=== PATIENT | female | born 1940 | race Caucasian/White ===

== ENCOUNTER → 2018-04-01 | Outpatient (CLI) | payer MEDICARE, OTHER ==
[2018-04-01 12:16] LABS: Source, Urine Clean Catch
[2018-04-01 16:15] LABS: Appearance, Urine Cloudy (Clear); Bilirubin, Urine Neg (Neg); Blood, Urine 2+ (Neg); Color, Urine Yellow (P-Yellow); Glucose Qualitative, Urine Neg (Neg); Ketones, Urine Neg (Neg); Leukocyte Esterase, Urine 3+ (Neg); Nitrite, Urine Neg (Neg); Protein, Urine 2+ (Neg); Urobilinogen, Urine NORM (Normal)
[2018-04-01 16:27] LABS: White Blood Cells, Urine TNTC /hpf (0-5)
[2018-04-01 16:28] LABS: Bacteria Many /hpf; Renal Epithelial Few /hpf (0-Rare); Squamous Epithelial Cells Few /hpf (Few)
== END | disposition home or self-care (01) ==
LOC: LAB 12:15 → LAB SHORT 12:15
PROVIDERS: Internal Medicine
DX: N18.9 Chronic kidney disease, unspecified (principal)
CPT/HCPCS: 81001; 87077; 87086; 87186

== ENCOUNTER → 2018-09-12 | Outpatient (CLI) | payer MEDICARE, OTHER | END | disposition home or self-care (01) | LOC: PLD 11:14 → LAB SHORT 11:14 | DX: D48.5 Neoplasm of uncertain behavior of skin (principal) | CPT/HCPCS: 88305 ==

== ENCOUNTER 2019-07-24 16:35 | Emergency (ER) | payer MEDICARE, OTHER ==
[~2019-07-24] VITALS: Ht 154.9 cm; Wt 63.5 kg
[2019-07-24 17:15] LABS: BASOPHILS ABSOLUTE AUTO 0.06 K/mm3 (0.00-0.23); BASOPHILS PERCENT AUTO 1 % (0-2); EOSINOPHILS ABSOLUTE AUTO 0.15 K/mm3 (0.00-0.68); EOSINOPHILS PERCENT AUTO 2 % (0-6); Hematocrit 36.8 % (33.0-51.0); Hemoglobin 11.8 g/dL (11.5-16.0); IMMATURE GRAN ABSOLUTE AUTO 0.01 K/mm3 (0.00-0.10); IMMATURE GRAN PERCENT AUTO 0 % (0-1); LYMPHOCYTES ABSOLUTE AUTO 1.55 K/mm3 (0.84-5.20); LYMPHOCYTES PERCENT AUTO 23 % (21-46); MONOCYTES ABSOLUTE AUTO 0.53 K/mm3 (0.16-1.47); MONOCYTES PERCENT AUTO 8 % (4-13); Mean Corpuscular HGB 30.3 pg (26.0-34.0); Mean Corpuscular HGB Conc 32.1 g/dL (31.5-36.5); Mean Corpuscular Volume 94 fL (80-100); NEUTROPHILS PERCENT AUTO 66 % (41-73); Platelet Count 277 K/mm3 (150-400); RDW Coefficient Variation 19.9 % (11.7-14.2); RDW Standard Deviation 67.9 fL (35.1-46.3)
[2019-07-24 17:38] LABS: Albumin, Blood 3.7 g/dL (3.4-5.0); Bilirubin, Total 0.2 mg/dL (0.1-1.0); Bun/Creatinine Ratio 27.4 (12.0-20.0); Calcium, Blood 9.5 mg/dL (8.5-10.1); Creatinine, Blood 1.17 mg/dL (0.40-1.00); Globulin, Blood 3.7 g/dL (2.2-4.0); Potassium, Blood 3.9 mmol/L (3.5-5.5); Total Protein, Blood 7.4 g/dL (6.4-8.2)
[2019-07-24 18:27] LABS: Source, Urine Clean Catch
[2019-07-24 18:33] LABS: Bilirubin, Urine Neg (Neg); Blood, Urine 2+ (Neg); Glucose Qualitative, Urine Neg (Neg); Ketones, Urine 1+ (Neg); Leukocyte Esterase, Urine 3+ (Neg); Nitrite, Urine Neg (Neg); Protein, Urine 2+ (Neg); Specific Gravity, Urine 1.025 (1.003-1.022); Urobilinogen, Urine NORM (Normal)
[2019-07-24 18:43] LABS: Appearance, Urine Cloudy (Clear); Color, Urine Yellow (P-Yellow)
[2019-07-24 18:44] LABS: Bacteria Many /hpf; Squamous Epithelial Cells Few /hpf (Few); Transitional Epithelial Cells Few /hpf (0-Rare); White Blood Cells, Urine TNTC /hpf (0-5)
[2019-07-24 18:54] LABS: U Amphetamine Screen Not Detected; U Barbituate Screen Not Detected; U Benzodiazapine Screen Not Detected; U Buprenorphine Screen Not Detected; U Cannabinoids Screen Not Detected; U Cocaine Screen Not Detected; U Methadone Screen Not Detected; U Methamphetamine Screen Not Detected; U Opiates Screen Not Detected; U Oxycodone Screen Not Detected; U Phencyclidine Screen Not Detected; U Propoxyphene Screen Not Detected
[2019-07-24] MEDS ORDERED: LEVSOD25 PO (19:22)
[2019-07-24] MEDS ORDERED: METO25ER PO (19:22)
[2019-07-24] MEDS ORDERED: MELO7.5 PO (19:22)
[2019-07-24] MEDS ORDERED: BACL10 PO (19:23)
[2019-07-24] MEDS ORDERED: GABA100 PO (19:23)
[2019-07-24] MEDS ORDERED: OMEPRAZOLE20 MG PO (19:23)
[2019-07-24] MEDS ORDERED: CEPH500 PO (19:38)
== END 2019-07-24 20:00 | disposition home or self-care (01) ==
LOC: ER 16:35
PROVIDERS: Emergency Medicine
DX: N39.0 Urinary tract infection, site not specified (principal)
CPT/HCPCS: 36415; 71046; 80053; 81001; 85025; 87077; 87086; 87186; 99284-25; A9270-GY

== ENCOUNTER → 2020-09-25 | Outpatient (CLI) | payer MEDICARE, OTHER ==
[~2020-09-25] MED LIST: BACL10 PO; CEPH500 PO; GABA100 PO; LEVSOD25 PO; MELO7.5 PO; METO25ER PO; OMEPRAZOLE20 MG PO
[2020-09-25 15:33] LABS: Source, Urine Clean Catch
[2020-09-25 18:02] LABS: Appearance, Urine Clear (Clear); Bilirubin, Urine Neg (Neg); Blood, Urine Neg (Neg); Color, Urine Yellow (P-Yellow); Glucose Qualitative, Urine Neg (Neg); Ketones, Urine Neg (Neg); Leukocyte Esterase, Urine 3+ (Neg); Nitrite, Urine Neg (Neg); Protein, Urine Neg (Neg); Specific Gravity, Urine 1.015 (1.003-1.022); Urobilinogen, Urine NORM (Normal)
[2020-09-25 18:19] LABS: Hyaline Casts Rare /lpf (0-2); Red Blood Cells, Urine 0-2 /hpf (0-2); Squamous Epithelial Cells Rare /hpf (Few)
[2020-09-25 18:20] LABS: Bacteria Rare /hpf; Transitional Epithelial Cells Few /hpf (0-Rare)
== END ==
LOC: PLD 15:32 → LAB SHORT 15:32 → LAB 15:32
PROVIDERS: Internal Medicine
DX: R10.9 Unspecified abdominal pain (principal)
CPT/HCPCS: 81001; 87086

== ENCOUNTER → 2020-10-02 | Outpatient (CLI) | payer MEDICARE, OTHER ==
[2020-10-02 14:53] LABS: Source, Urine Clean Catch
[2020-10-02 17:44] LABS: Appearance, Urine Clear (Clear); Bilirubin, Urine Neg (Neg); Blood, Urine 1+ (Neg); Color, Urine Yellow (P-Yellow); Glucose Qualitative, Urine Neg (Neg); Ketones, Urine Neg (Neg); Leukocyte Esterase, Urine 1+ (Neg); Nitrite, Urine Neg (Neg); Protein, Urine Neg (Neg); Specific Gravity, Urine 1.025 (1.003-1.022); Urobilinogen, Urine NORM (Normal)
[2020-10-02 18:02] LABS: Bacteria Few /hpf; Calcium Oxalate Crystals Few /hpf; Red Blood Cells, Urine 0-2 /hpf (0-2); Squamous Epithelial Cells Few /hpf (Few)
== END | disposition home or self-care (01) ==
LOC: LAB 11:43
PROVIDERS: Internal Medicine
DX: R10.9 Unspecified abdominal pain (principal)
CPT/HCPCS: 81001; 87086

== ENCOUNTER 2021-08-06 05:57 | Emergency (ER) | payer MEDICARE, OTHER ==
[~2021-08-06] VITALS: Ht 154.9 cm; Wt 49.9 kg
[2021-08-06] MEDS ORDERED: HYDROCODONE-AC1 EAC7 PO (06:25)
[2021-08-06 06:29] LABS: BASOPHILS ABSOLUTE AUTO 0.02 K/mm3 (0.00-0.23); BASOPHILS PERCENT AUTO 0 % (0-2); EOSINOPHILS PERCENT AUTO 0 % (0-6); Hematocrit 30.7 % (33.0-51.0); Hemoglobin 10.3 g/dL (11.5-16.0); IMMATURE GRAN ABSOLUTE AUTO 0.04 K/mm3 (0.00-0.10); IMMATURE GRAN PERCENT AUTO 0 % (0-1); LYMPHOCYTES ABSOLUTE AUTO 0.45 K/mm3 (0.84-5.20); LYMPHOCYTES PERCENT AUTO 4 % (21-46); MONOCYTES ABSOLUTE AUTO 0.62 K/mm3 (0.16-1.47); MONOCYTES PERCENT AUTO 5 % (4-13); Mean Corpuscular HGB 30.6 pg (26.0-34.0); Mean Corpuscular HGB Conc 33.6 g/dL (31.5-36.5); Mean Corpuscular Volume 91 fL (80-100); Mean Platelet Volume 10.1 fL (9.1-12.4); NEUTROPHILS ABSOLUTE AUTO 10.77 K/mm3 (1.96-9.15); NEUTROPHILS PERCENT AUTO 91 % (41-73); Platelet Count 284 K/mm3 (150-400); RDW Coefficient Variation 21.2 % (11.7-14.2); RDW Standard Deviation 67.9 fL (35.1-46.3); Red Blood Cell Count 3.37 M/mm3 (3.80-5.20)
[2021-08-06 06:54] LABS: Alanine Aminotransfer (ALT/SGP 19 U/L (12-78); Albumin, Blood 3.3 g/dL (3.4-5.0); Alk Phos 68 U/L (50-136); Anion Gap 9 mmol/L (6-16); Aspartate Aminotrans (AST/SGOT 19 U/L (12-37); Bilirubin, Total 0.5 mg/dL (0.1-1.0); Blood Urea Nitrogen 28 mg/dL (8-24); Bun/Creatinine Ratio 28.7 (12.0-20.0); CO2, Blood 25 mmol/L (21-32); Calcium, Blood 9.3 mg/dL (8.5-10.1); Chloride, Blood 104 mmol/L (98-108); Creatinine, Blood 0.98 mg/dL (0.40-1.00); Globulin, Blood 3.3 g/dL (2.2-4.0); Glomerular Filtration Rate 55 (60-); Glucose, Blood 128 mg/dL (70-99); Sodium, Blood 138 mmol/L (136-145); Total Protein, Blood 6.6 g/dL (6.4-8.2); Troponin I <0.015 ng/mL (0.000-0.040)
[2021-08-06] MEDS ORDERED: ONDA4ODT MM (09:08)
[2021-08-06] MEDS ORDERED: AMOCLA875 PO (09:08)
== END 2021-08-06 10:05 | disposition home or self-care (01) ==
LOC: ER 05:57
PROVIDERS: Emergency Medicine
DX: K57.32 Diverticulitis of large intestine without perforation or abscess without bleeding (principal)
CPT/HCPCS: 74177; 80053; 83690; 84484; 85025; 93005; 93010; A9270; J3010; Q9967

== ENCOUNTER 2021-09-12 16:55 | Emergency (ER) | payer MEDICARE, OTHER ==
[~2021-09-12] VITALS: Ht 154.9 cm; Wt 47.6 kg
[~2021-09-12 16:55] MED LIST changes: +AMOCLA875 PO; +HYDROCODONE-AC1 EAC7 PO; +ONDA4ODT MM
[2021-09-12 17:48] LABS: BASOPHILS ABSOLUTE AUTO 0.04 K/mm3 (0.00-0.23); BASOPHILS PERCENT AUTO 1 % (0-2); EOSINOPHILS ABSOLUTE AUTO 0.07 K/mm3 (0.00-0.68); EOSINOPHILS PERCENT AUTO 1 % (0-6); Hemoglobin 10.7 g/dL (11.5-16.0); IMMATURE GRAN ABSOLUTE AUTO 0.03 K/mm3 (0.00-0.10); IMMATURE GRAN PERCENT AUTO 0 % (0-1); LYMPHOCYTES ABSOLUTE AUTO 1.06 K/mm3 (0.84-5.20); LYMPHOCYTES PERCENT AUTO 13 % (21-46); MONOCYTES PERCENT AUTO 8 % (4-13); Mean Corpuscular HGB 30.6 pg (26.0-34.0); Mean Corpuscular HGB Conc 33.4 g/dL (31.5-36.5); Mean Corpuscular Volume 91 fL (80-100); Mean Platelet Volume 10.2 fL (9.1-12.4); NEUTROPHILS ABSOLUTE AUTO 6.17 K/mm3 (1.96-9.15); NEUTROPHILS PERCENT AUTO 77 % (41-73); Platelet Count 514 K/mm3 (150-400); RDW Coefficient Variation 19.6 % (11.7-14.2); RDW Standard Deviation 62.9 fL (35.1-46.3); White Blood Cell Count 7.97 K/mm3 (4.00-11.30)
[2021-09-12 18:27] LABS: Alanine Aminotransfer (ALT/SGP 26 U/L (12-78); Albumin, Blood 3.4 g/dL (3.4-5.0); Albumin/Globulin Ratio 0.8 (0.8-1.8); Alk Phos 154 U/L (50-136); Anion Gap 10 mmol/L (6-16); Aspartate Aminotrans (AST/SGOT 19 U/L (12-37); Bilirubin, Total 0.4 mg/dL (0.1-1.0); Blood Urea Nitrogen 22 mg/dL (8-24); Bun/Creatinine Ratio 27.7 (12.0-20.0); CO2, Blood 24 mmol/L (21-32); Calcium, Blood 9.6 mg/dL (8.5-10.1); Chloride, Blood 101 mmol/L (98-108); Creatinine, Blood 0.79 mg/dL (0.40-1.00); Glomerular Filtration Rate >60 (60-); Glucose, Blood 128 mg/dL (70-99); Potassium, Blood 3.7 mmol/L (3.5-5.5); Sodium, Blood 135 mmol/L (136-145); Total Protein, Blood 7.4 g/dL (6.4-8.2)
[2021-09-12] MEDS ORDERED: DOCU100 PO (22:14)
== END 2021-09-12 23:15 | disposition home or self-care (01) ==
LOC: ER 16:55
PROVIDERS: Physician Assistant
DX: K59.00 Constipation, unspecified (principal); Z79.899 Other long term (current) drug therapy; Z88.8 Allergy status to other drugs, medicaments and biological substances
CPT/HCPCS: 36415; 74176; 80053; 83690; 85025; 96374; 99284-25; A9270; J2405

== ENCOUNTER → 2021-10-31 | Outpatient (CLI) | payer MEDICARE, OTHER ==
[~2021-10-31] MED LIST changes: +DOCU100 PO
[2021-10-31 13:07] LABS: BASOPHILS ABSOLUTE AUTO 0.04 K/mm3 (0.00-0.23); BASOPHILS PERCENT AUTO 1 % (0-2); EOSINOPHILS ABSOLUTE AUTO 0.09 K/mm3 (0.00-0.68); EOSINOPHILS PERCENT AUTO 1 % (0-6); Hematocrit 35.8 % (33.0-51.0); Hemoglobin 11.8 g/dL (11.5-16.0); IMMATURE GRAN ABSOLUTE AUTO 0.02 K/mm3 (0.00-0.10); IMMATURE GRAN PERCENT AUTO 0 % (0-1); LYMPHOCYTES ABSOLUTE AUTO 0.79 K/mm3 (0.84-5.20); LYMPHOCYTES PERCENT AUTO 11 % (21-46); MONOCYTES ABSOLUTE AUTO 0.63 K/mm3 (0.16-1.47); MONOCYTES PERCENT AUTO 9 % (4-13); Mean Corpuscular HGB 31.1 pg (26.0-34.0); Mean Corpuscular Volume 94 fL (80-100); Mean Platelet Volume 10.5 fL (9.1-12.4); NEUTROPHILS ABSOLUTE AUTO 5.33 K/mm3 (1.96-9.15); NEUTROPHILS PERCENT AUTO 77 % (41-73); Platelet Count 291 K/mm3 (150-400); RDW Coefficient Variation 18.5 % (11.7-14.2); RDW Standard Deviation 62.5 fL (35.1-46.3)
[2021-10-31 13:20] LABS: Alanine Aminotransfer (ALT/SGP 20 U/L (12-78); Albumin, Blood 3.5 g/dL (3.4-5.0); Alk Phos 72 U/L (50-136); Anion Gap 5 mmol/L (6-16); Aspartate Aminotrans (AST/SGOT 14 U/L (12-37); Bilirubin, Total 0.4 mg/dL (0.1-1.0); Blood Urea Nitrogen 19 mg/dL (8-24); Bun/Creatinine Ratio 21.4 (12.0-20.0); CO2, Blood 30 mmol/L (21-32); Calcium, Blood 9.5 mg/dL (8.5-10.1); Chloride, Blood 101 mmol/L (98-108); Creatinine, Blood 0.89 mg/dL (0.40-1.00); Globulin, Blood 3.5 g/dL (2.2-4.0); Glomerular Filtration Rate >60 (60-); Glucose, Blood 115 mg/dL (70-99); Sodium, Blood 136 mmol/L (136-145)
== END ==
LOC: LAB SHORT 11:44
PROVIDERS: Internal Medicine
DX: R63.4 Abnormal weight loss (principal); N18.1 Chronic kidney disease, stage 1; F32.1 Major depressive disorder, single episode, moderate; E03.9 Hypothyroidism, unspecified; R73.09 Other abnormal glucose
CPT/HCPCS: 80053; 83036; 84443; 85025

== ENCOUNTER 2023-01-13 20:52 | Observation (INO) | payer MEDICARE, OTHER ==
[~2023-01-13] VITALS: Ht 157.5 cm; Wt 54.4 kg
[2023-01-13 21:21] LABS: BASOPHILS ABSOLUTE AUTO 0.05 K/mm3 (0.00-0.23); BASOPHILS PERCENT AUTO 1 % (0-2); EOSINOPHILS PERCENT AUTO 1 % (0-6); Hematocrit 37.2 % (33.0-51.0); Hemoglobin 12.2 g/dL (11.5-16.0); IMMATURE GRAN ABSOLUTE AUTO 0.02 K/mm3 (0.00-0.10); IMMATURE GRAN PERCENT AUTO 0 % (0-1); LYMPHOCYTES ABSOLUTE AUTO 1.59 K/mm3 (0.84-5.20); LYMPHOCYTES PERCENT AUTO 20 % (21-46); MONOCYTES ABSOLUTE AUTO 0.73 K/mm3 (0.16-1.47); MONOCYTES PERCENT AUTO 9 % (4-13); Mean Corpuscular HGB 28.8 pg (26.0-34.0); Mean Corpuscular HGB Conc 32.8 g/dL (31.5-36.5); Mean Corpuscular Volume 88 fL (80-100); NEUTROPHILS ABSOLUTE AUTO 5.47 K/mm3 (1.96-9.15); NEUTROPHILS PERCENT AUTO 69 % (41-73); Platelet Count 304 K/mm3 (150-400); RDW Coefficient Variation 22.5 % (11.7-14.2); RDW Standard Deviation 68.5 fL (35.1-46.3); Red Blood Cell Count 4.23 M/mm3 (3.80-5.20); White Blood Cell Count 7.96 K/mm3 (4.00-11.30)
[2023-01-13 21:23] LABS: Mean Platelet Volume 10.2 fL (9.1-12.4)
[2023-01-13 21:36] LABS: Albumin, Blood 3.3 g/dL (3.4-5.0); Albumin/Globulin Ratio 0.9 (0.8-1.8); Bilirubin, Total 0.2 mg/dL (0.1-1.0); Bun/Creatinine Ratio 30.7 (12.0-20.0); Calcium, Blood 9.4 mg/dL (8.5-10.1); Creatinine, Blood 1.01 mg/dL (0.40-1.00); Globulin, Blood 3.5 g/dL (2.2-4.0); Potassium, Blood 3.4 mmol/L (3.5-5.5); Total Protein, Blood 6.8 g/dL (6.4-8.2)
[2023-01-13 21:55] LABS: Calcium, Ionized (POC) 1.23 mmol/L (1.10-1.46); Chloride (POC) 105 mmol/L (98-108); Glucose (ISTAT POC) 102 mg/dL (70-99); Hemoglobin (POC) 12.6 g/dL (12.0-16.0); Potassium (POC) 3.3 mmol/L (3.5-5.5); Sodium (POC) 140 mmol/L (135-148); Total CO2 (POC) 24 mmol/L (21-32)
[2023-01-13] MEDS ORDERED: ASPIR 8181 M1 PO (22:01)
[2023-01-13 23:32] LABS: Magnesium, Blood 1.9 mg/dL (1.6-2.4); Thyroid Stimulating Hormone 4.21 uIU/mL (0.360-4.800)
[2023-01-14 02:25] VITALS: BP 189/76
[2023-01-14 02:27] VITALS: BP 162/81
--- NOTE | 2023-01-14 03:59 | NUR ---
ADMIT NOTE HANDOFF RECEIVED FROM ANABELLA RAMIREZ RN. PT ARRIVED TO FLOOR VIA GURNEY. PT ORIENTED TO UNIT. TELEMETRY: NSR @ 68 bpm. PERSONAL POSSESSIONS WITH PT. IV MG++ INFUSING ORDERED
--- NOTE | 2023-01-14 04:27 | NUR ---
SHIFT SUMMARY ADMITTED THIS SHIFT FROM ER FOR PAROXYSMAL SVT. DNI CODE. THE PLAN IS K+ AND MG++ SUPPLEMENTATION AND MX HEART RHYTHM. TELEMETRY: NSR @ 68 BPM. SHE HAS NO S/SX OR CP. 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 SHE IS ON RA, CARDIAC DIET, 1 ASSIST W/FWW. SHE IS WEAK AND SLOW MOVING. SHE IS A&O X4. SHE IS INCONTINENT, PUREWICK IN PLACE
[2023-01-14 05:21] LABS: BASOPHILS ABSOLUTE AUTO 0.05 K/mm3 (0.00-0.23); BASOPHILS PERCENT AUTO 1 % (0-2); EOSINOPHILS ABSOLUTE AUTO 0.09 K/mm3 (0.00-0.68); EOSINOPHILS PERCENT AUTO 2 % (0-6); Hemoglobin 11.2 g/dL (11.5-16.0); IMMATURE GRAN ABSOLUTE AUTO 0.02 K/mm3 (0.00-0.10); IMMATURE GRAN PERCENT AUTO 0 % (0-1); LYMPHOCYTES PERCENT AUTO 27 % (21-46); MONOCYTES PERCENT AUTO 8 % (4-13); Mean Corpuscular HGB 29.1 pg (26.0-34.0); Mean Corpuscular HGB Conc 32.9 g/dL (31.5-36.5); Mean Corpuscular Volume 88 fL (80-100); Mean Platelet Volume 10.4 fL (9.1-12.4); NEUTROPHILS PERCENT AUTO 62 % (41-73); Platelet Count 263 K/mm3 (150-400); RDW Coefficient Variation 22.3 % (11.7-14.2); RDW Standard Deviation 69.1 fL (35.1-46.3); Red Blood Cell Count 3.85 M/mm3 (3.80-5.20); White Blood Cell Count 5.96 K/mm3 (4.00-11.30)
[2023-01-14 05:56] LABS: Albumin, Blood 2.9 g/dL (3.4-5.0); Bilirubin, Total 0.3 mg/dL (0.1-1.0); Bun/Creatinine Ratio 28.5 (12.0-20.0); Calcium, Blood 8.6 mg/dL (8.5-10.1); Creatinine, Blood 0.88 mg/dL (0.40-1.00); Globulin, Blood 2.9 g/dL (2.2-4.0); Potassium, Blood 3.9 mmol/L (3.5-5.5); Total Protein, Blood 5.8 g/dL (6.4-8.2)
[2023-01-14 07:47] VITALS: BP 152/65
--- NOTE | 2023-01-14 14:59 | NUR ---
PT DISCHARGED 1345 WITH DC INSTRUCTIONS, WHEELCHAIR ESCORT OUT TO PRIVATE CAR FOR DRIVE HOME. HOME HEALTH PT SET UP WITH AND JOB PLACEMENT COUNSELOR BEFORE PT LEFT.
== END 2023-01-14 13:35 | disposition home health service (06) ==
LOC: ER 20:52 → MEDS 20:53
PROVIDERS: Family Medicine; Student in an Organized Health Care Education/Training Program; ADMIT Internal Medicine
DX: I47.1 Supraventricular tachycardia (principal); E87.6 Hypokalemia; E03.9 Hypothyroidism, unspecified; I10 Essential (primary) hypertension; K21.9 Gastro-esophageal reflux disease without esophagitis; Z66 Do not resuscitate; Z88.5 Allergy status to narcotic agent; Z79.890 Hormone replacement therapy; Z79.899 Other long term (current) drug therapy
CPT/HCPCS: 36415; 71045; 80047; 80053; 83735; 83880; 84443; 84484; 85014; 85025; 93005; 93010; 96360; 96361; 96365; 96372; 97110; 97116; 97162; 99285-25; A9270; G0378; J1650; J3475; J7030; J7050

== ENCOUNTER 2023-01-15 22:28 | Emergency (ER) | payer MEDICARE, OTHER ==
[~2023-01-15] VITALS: Ht 157.5 cm; Wt 59.0 kg
[~2023-01-15 22:28] MED LIST changes: +ASPIR 8181 M1 PO
[2023-01-15 23:15] VITALS: BP 131/97
== END 2023-01-15 23:45 | disposition home or self-care (01) ==
LOC: ER 22:28
DX: I47.1 Supraventricular tachycardia (principal); Z88.5 Allergy status to narcotic agent; Z79.899 Other long term (current) drug therapy; Z79.82 Long term (current) use of aspirin
CPT/HCPCS: 93005; 93010; 99285-25

== ENCOUNTER 2023-01-22 16:46 | Observation (INO) | payer MEDICARE, OTHER | END 2023-01-25 16:42 | disposition home or self-care (01) | LOC: ER 16:46 → MEDS 16:48 | PROVIDERS: ADMIT Hospitalist | DX: R53.1 Weakness (principal); I47.1 Supraventricular tachycardia; I48.0 Paroxysmal atrial fibrillation; E03.9 Hypothyroidism, unspecified; N17.9 Acute kidney failure, unspecified; Z20.822 Contact with and (suspected) exposure to COVID-19; Z88.5 Allergy status to narcotic agent ==

== ENCOUNTER → 2024-02-11 | Outpatient (CLI) | payer MEDICARE ==
[~2024-02-11] MED LIST changes: +DONEPEZIL HCL5 M1; +ESCI10 PO; +MECL25 PO; +MIRT15 PO; +TOPROL XL25 MG PO
[2024-02-11 15:38] LABS: BASOPHILS ABSOLUTE AUTO 0.05 K/mm3 (0.00-0.23); BASOPHILS PERCENT AUTO 1 % (0-2); EOSINOPHILS ABSOLUTE AUTO 0.12 K/mm3 (0.00-0.68); EOSINOPHILS PERCENT AUTO 2 % (0-6); Hematocrit 34.1 % (33.0-51.0); Hemoglobin 10.9 g/dL (11.5-16.0); IMMATURE GRAN ABSOLUTE AUTO 0.02 K/mm3 (0.00-0.10); IMMATURE GRAN PERCENT AUTO 0 % (0-1); LYMPHOCYTES ABSOLUTE AUTO 1.12 K/mm3 (0.84-5.20); LYMPHOCYTES PERCENT AUTO 20 % (21-46); MONOCYTES ABSOLUTE AUTO 0.39 K/mm3 (0.16-1.47); MONOCYTES PERCENT AUTO 7 % (4-13); Mean Corpuscular HGB 29.2 pg (26.0-34.0); Mean Corpuscular Volume 91 fL (80-100); Mean Platelet Volume 10.9 fL (9.1-12.4); NEUTROPHILS ABSOLUTE AUTO 3.93 K/mm3 (1.96-9.15); NEUTROPHILS PERCENT AUTO 70 % (41-73); Platelet Count 297 K/mm3 (150-400); RDW Coefficient Variation 22.8 % (11.7-14.2); RDW Standard Deviation 72.3 fL (35.1-46.3); Red Blood Cell Count 3.73 M/mm3 (3.80-5.20); White Blood Cell Count 5.63 K/mm3 (4.00-11.30)
[2024-02-11 16:03] LABS: Alanine Aminotransfer (ALT/SGP 19 U/L (12-78); Albumin, Blood 3.2 g/dL (3.4-5.0); Albumin/Globulin Ratio 0.8 (0.8-1.8); Alk Phos 88 U/L (50-136); Anion Gap 7 mmol/L (3-11); Aspartate Aminotrans (AST/SGOT 15 U/L (12-37); Bilirubin, Total 0.3 mg/dL (0.1-1.0); Blood Urea Nitrogen 27 mg/dL (8-24); Bun/Creatinine Ratio 27.4 (12.0-20.0); CHOL/HDL RATIO 3.1; CO2, Blood 29 mmol/L (21-32); Calcium, Blood 8.8 mg/dL (8.5-10.1); Chloride, Blood 107 mmol/L (98-108); Cholesterol 212 mg/dL (50-200); Creatinine, Blood 0.99 mg/dL (0.40-1.00); Globulin, Blood 3.8 g/dL (2.2-4.0); Glomerular Filtration Rate 57 (60-); Glucose, Blood 79 mg/dL (70-99); HDL Cholesterol 68 mg/dL (>39); LDL/HDL RATIO 1.8; Low Density Lipoprotein Chol 123 mg/dL (0-110); Potassium, Blood 3.6 mmol/L (3.5-5.5); Sodium, Blood 139 mmol/L (136-145); Triglycerides 104 mg/dL (30-160); Very Low Density Lipoprot Chol 20 mg/dL (6-32)
== END | disposition home or self-care (01) ==
LOC: LAB SHORT 12:59 → LAB 12:59
PROVIDERS: Internal Medicine
DX: E03.9 Hypothyroidism, unspecified (principal); E53.8 Deficiency of other specified B group vitamins; E78.5 Hyperlipidemia, unspecified; N18.1 Chronic kidney disease, stage 1; R73.09 Other abnormal glucose
CPT/HCPCS: 80053; 80061; 82607; 82746; 83036; 84443; 85025

== ENCOUNTER 2024-08-05 17:12 | Inpatient (IN) | payer MEDICARE, OTHER ==
[~2024-08-05] VITALS: Ht 154.9 cm; Wt 59.7 kg
[~2024-08-05 17:12] MED LIST changes: -DONEPEZIL HCL5 M1; +DONEPEZIL HCL5 M1 PO
[2024-08-05 17:40] LABS: BASOPHILS ABSOLUTE AUTO 0.05 K/mm3 (0.00-0.23); BASOPHILS PERCENT AUTO 0 % (0-2); EOSINOPHILS ABSOLUTE AUTO 0.09 K/mm3 (0.00-0.68); EOSINOPHILS PERCENT AUTO 1 % (0-6); Hematocrit 33.1 % (33.0-51.0); Hemoglobin 10.6 g/dL (11.5-16.0); IMMATURE GRAN ABSOLUTE AUTO 0.08 K/mm3 (0.00-0.10); IMMATURE GRAN PERCENT AUTO 1 % (0-1); LYMPHOCYTES ABSOLUTE AUTO 1.48 K/mm3 (0.84-5.20); LYMPHOCYTES PERCENT AUTO 11 % (21-46); MONOCYTES ABSOLUTE AUTO 0.82 K/mm3 (0.16-1.47); MONOCYTES PERCENT AUTO 6 % (4-13); Mean Corpuscular HGB 30.1 pg (26.0-34.0); Mean Corpuscular Volume 94 fL (80-100); Mean Platelet Volume 10.3 fL (9.1-12.4); NEUTROPHILS ABSOLUTE AUTO 10.53 K/mm3 (1.96-9.15); NEUTROPHILS PERCENT AUTO 81 % (41-73); Platelet Count 239 K/mm3 (150-400); RDW Coefficient Variation 20.7 % (11.7-14.2); RDW Standard Deviation 69.6 fL (35.1-46.3); Red Blood Cell Count 3.52 M/mm3 (3.80-5.20); White Blood Cell Count 13.05 K/mm3 (4.00-11.30)
[2024-08-05 17:51] LABS: Albumin/Globulin Ratio 0.8 (0.8-1.8); Bilirubin, Total 0.4 mg/dL (0.1-1.0); Bun/Creatinine Ratio 35.8 (12.0-20.0); Calcium, Blood 9.5 mg/dL (8.5-10.1); Creatinine, Blood 0.95 mg/dL (0.40-1.00); Globulin, Blood 3.9 g/dL (2.2-4.0); Potassium, Blood 3.7 mmol/L (3.5-5.5); Total Protein, Blood 6.9 g/dL (6.4-8.2)
[2024-08-05] MEDS ORDERED: Aspirin 325 MG Tab PO ONE (18:15)
[2024-08-05] MEDS ORDERED: NS 1,000 ML IV SCH (19:25)
[2024-08-05 20:00] VITALS: BP 118/55
[2024-08-05 20:15] VITALS: BP 138/75
[2024-08-05 20:30] VITALS: BP 132/66
[2024-08-05 20:31] LABS: Anti-Xa UFH, PHA Monitoring <0.10 IU/mL; International Normalized Ratio 1.02; Prothrombin Time Results 10.9 Sec (9.7-11.5)
[2024-08-05 20:45] VITALS: BP 135/84
[2024-08-05] MEDS ORDERED: FLU VACC TS2024-25(6MOS UP)/PF 45 MCG/0.5 ML SYRINGE IM SCH (20:50)
[2024-08-05] MEDS ORDERED: Heparin Sodium,Porcine/0.5 NS 500 ML IV SCH (20:55)
[2024-08-05] MEDS ORDERED: Heparin Sodium 5000 Units/ML 1ML MDV IV ONE (20:55)
[2024-08-05] MEDS ORDERED: Mirtazapine 15 MG Tab PO SCH (21:00)
[2024-08-05] MEDS ORDERED: Heparin Sodium 1000 Units/ML 10ML MDV ONE ×3 (21:10→23:34)
[2024-08-05] MEDS ORDERED: NS 100 ML IV ONE (21:10)
[2024-08-05] MEDS ORDERED: NS 1,000 ML IV ONE ×2 (21:10→21:21)
[2024-08-05] MEDS ORDERED: NS 250 ML IV ONE (21:18)
[2024-08-05] MEDS ORDERED: FentaNYL Citrate 50 MCG/ML 2 ML Injection ONE (21:21)
[2024-08-05] MEDS ORDERED: Midazolam HCl 1MG / ML 2ML Vial ONE (21:21)
[2024-08-05 21:45] VITALS: BP 128/84
[2024-08-05] MEDS ORDERED: NS 500 ML IV ONE ×3 (22:42→23:34)
[2024-08-06] VITALS (35 sets, daily range): BP systolic 83–140; BP diastolic 38–72
[2024-08-06] MEDS ORDERED: Dose Adjust by Pharmacy XX STA ×5 (00:23→20:44)
--- NOTE | 2024-08-06 02:00 | NUR ---
PT ARRIVES TO ROOM ICU 9 AT 0015 FROM [facility]. S/P THROMBECTOMY. BEDSIDE REPORT RECEIVED. PT'S SON AND HER TO ROOM. ASSISTS IN ADMISSION ASSESSMENT AND INTERVIEW. PT AND FAMILY GOOD HISTORIANS. PT HAS RIGHT GROIN SITE WITH CLOSURE DEVICE IN PLACE. NO HEMATOMA OR OOZING TO NOTE. GOOD DISTAL CMS CHECKS. NO COMPLAINTS OF DYSPNEA OR CHEST PAIN/PRESSURE. WILL REVIEW CHART AND PLAN OF CARE FOR THIS PT.
[2024-08-06 05:29] LABS: BASOPHILS ABSOLUTE AUTO 0.02 K/mm3 (0.00-0.23); BASOPHILS PERCENT AUTO 0 % (0-2); EOSINOPHILS ABSOLUTE AUTO 0.01 K/mm3 (0.00-0.68); EOSINOPHILS PERCENT AUTO 0 % (0-6); Hematocrit 25.5 % (33.0-51.0); Hemoglobin 8.1 g/dL (11.5-16.0); IMMATURE GRAN ABSOLUTE AUTO 0.07 K/mm3 (0.00-0.10); IMMATURE GRAN PERCENT AUTO 1 % (0-1); LYMPHOCYTES ABSOLUTE AUTO 0.92 K/mm3 (0.84-5.20); LYMPHOCYTES PERCENT AUTO 11 % (21-46); MONOCYTES PERCENT AUTO 7 % (4-13); Mean Corpuscular HGB 29.8 pg (26.0-34.0); Mean Corpuscular HGB Conc 31.8 g/dL (31.5-36.5); Mean Corpuscular Volume 94 fL (80-100); Mean Platelet Volume 10.7 fL (9.1-12.4); NEUTROPHILS PERCENT AUTO 81 % (41-73); Platelet Count 192 K/mm3 (150-400); RDW Coefficient Variation 21.1 % (11.7-14.2); Red Blood Cell Count 2.72 M/mm3 (3.80-5.20); White Blood Cell Count 8.52 K/mm3 (4.00-11.30)
[2024-08-06 05:56] LABS: Albumin, Blood 2.3 g/dL (3.4-5.0); Albumin/Globulin Ratio 0.7 (0.8-1.8); Bilirubin, Total 0.4 mg/dL (0.1-1.0); Bun/Creatinine Ratio 25.9 (12.0-20.0); Calcium, Blood 8.4 mg/dL (8.5-10.1); Creatinine, Blood 1.12 mg/dL (0.40-1.00); Globulin, Blood 3.1 g/dL (2.2-4.0); Total Protein, Blood 5.4 g/dL (6.4-8.2)
[2024-08-06] MEDS ORDERED: Levothyroxine Sodium 0.025 MG Tab PO SCH (06:00)
--- NOTE | 2024-08-06 07:00 | NUR ---
CARE ASSUMPTION. BEDSIDE REPORT FROM PT ALERT AND ORIENTED. LAYING SUPINE IN BED. HEPARIN GTT RUNNING AT 12MG/KG/HR. OXYGEN 2LPM VIA NC. HIPS FLOATED.
--- NOTE | 2024-08-06 07:18 | NUR ---
PT REMAINS ON 2 L/M O2 WHEREAS SHE MAINTAINS >90 PERCENT SATURATIONS. PT TRIALED ON ROOM AIR TWICE THIS MORNING, DOES UNFORTUNATELY DROP TO MID 80 PERCENTS. PT DENIES DYSPNEA. CONTINUES ON HEPARIN DRIP PER PHARMACY. WILL CONTINUE TO MONITOR PT, AND WILL REPORT OFF TO ONCOMING RN.
[2024-08-06 08:32] LABS: Hematocrit 26.4 % (33.0-51.0); Hemoglobin 8.5 g/dL (11.5-16.0); Mean Corpuscular HGB 30.6 pg (26.0-34.0); Mean Corpuscular HGB Conc 32.2 g/dL (31.5-36.5); Mean Corpuscular Volume 95 fL (80-100); Mean Platelet Volume 10.3 fL (9.1-12.4); Platelet Count 202 K/mm3 (150-400); RDW Standard Deviation 71.9 fL (35.1-46.3); Red Blood Cell Count 2.78 M/mm3 (3.80-5.20); White Blood Cell Count 8.77 K/mm3 (4.00-11.30)
[2024-08-06] MEDS ORDERED: Citalopram Hydrobromide 10 MG TAB PO SCH (09:00)
[2024-08-06] MEDS ORDERED: Donepezil HCl 5 MG Tab PO SCH (09:00)
--- NOTE | 2024-08-06 10:30 | NUR ---
REVIEWED CASE WITH DR GARZA AND DR. SHI. PROVIDERS NOTIFIED OF BRUISING AROUND R FEMORAL GROIN SITE. MARKED A BORDER AROUND AREA OF INVOLVMENT. MD ALSO NOTIFIED OF BLOOD VISIBLE TO SCLERA OF THE RIGHT EYE NEAR THE CANTHUS. PATIENT STATES SHE RECENTLY HAD AN INJECTION OF MEDICATION IN THE AFFECTED EYE. DENIES ANY CHANGES IN VISION OR BLURRY VISION. PAIN 2/10 AT GROIN SITE WHEN PALPATED. DENIES ANY HIP OR FLANK PAIN. DIET ADVANCED TO [facility].
[2024-08-06] MEDS ORDERED: Acetaminophen 325 MG TABLET PO PRN (13:35)
[2024-08-06 14:22] LABS: Hematocrit 24.3 % (33.0-51.0); Hemoglobin 7.9 g/dL (11.5-16.0); Mean Corpuscular HGB 30.5 pg (26.0-34.0); Mean Corpuscular HGB Conc 32.5 g/dL (31.5-36.5); Mean Corpuscular Volume 94 fL (80-100); Mean Platelet Volume 10.5 fL (9.1-12.4); Platelet Count 211 K/mm3 (150-400); RDW Coefficient Variation 20.9 % (11.7-14.2); RDW Standard Deviation 68.8 fL (35.1-46.3); Red Blood Cell Count 2.59 M/mm3 (3.80-5.20); White Blood Cell Count 7.91 K/mm3 (4.00-11.30)
--- NOTE | 2024-08-06 14:46 | NUR ---
CALL TO DR SHI, REVIEWED RECENT LABS, H+H TRENDING DOWN. NO NEW ORDERS RECIEVED. VSS, NO CHANGES TO ECCYMOSIS AT R FEMORAL GROIN SITE. SITE REMAINS SOFT WITH PALPATION. MILD DISCOMFORT WITH PALPATION MINIMAL BLOOD AT CLOSURE SITE. DENIES ANY HIP OR FLANK PAIN. PT DOES REPORT 2/10 YUAN, PROVIDER AWARE.
--- NOTE | 2024-08-06 18:19 | NUR ---
PATIENT ALERT AND ORIENTED X4. ABLE TO MAKE HER NEEDS. DIET ADVANCED MIDDAY. APPETITE GOOD. REMAINED ON HEPARIN GTT PAUSED MULTIPLE TIMES DUE TO SUPRATHERAPUTIC ANTI X. CURRENTLY HEPARIN GTT INFUSING. R FEMORAL GROIN ACCESS SITE WITH ECCYMOSIS VISIBLE, INVOLVED AREA BOARDER MARKED.SOME TENDERNESS AT SITE BUT AREA REMAINS SOFT WITH PALPATION. MINIMAL AMOUNT OF BLOOD VISIBLE AT FLOW STATSIS THIS WAS UNCHANGE THROUGH OUT THE DAY. PATIENT ALSO HAS VISIBLE REDNESS TO R SCLERA NEAR CANTHUS, SHE STATES SHE RECENTLY HAD A MEDICATION INJECTION AT THIS SITE. DENIED ANY VISION CHANGES TODAY. SCATTERED BRUISING TO BUE,BLE'S. HEMOGLOBIN TRENDING DOWN, MD WAS NOTIFIED. PATIENT OXYGEN REDUCED TO 1LPM, MAINTAINING SPO2 ABOVE 92% C/O HEADACH 3/10 PAIN TREATED WITH TYLENOL, EFFECTIVE IN REDUCTIN PAIN. +2 EDEMA TO BLE AND TRACE EDEMA TO BUE. ECHO AND VAS DUPLEX SCAN COMPLETED THIS AFTERNOON PLAN FOR NPO AT MIDNIGHT ANTICIPATING PLACEMENT OF IVC FILTER
--- NOTE | 2024-08-06 19:30 | NUR ---
ASSUMPTION OF CARE ASSUMED CARE OF PATIENT AT 1900, BEDSIDE SHIFT REPORT RECEIVED FROM LESIA RN. PT RESTING IN BED, ALERT AND ORIENTED X4. PT ANSWERS QUESTIONS APPROPRAITELY, FOLLOWS DIRECTION WHEN PROMPTED AND IS ABLE TO MAKE HER NEEDS KNOWN. PT MOVES EXTREMITIES EQUALLY BILATERALLY. PT COMPLAINING OF 9/10 PAIN TO THE RIGHT GROIN ACCESS SITE. CLOSURE DEVICE AND DRESSING IN PLACE. BRUISING TO THE SITE NOTED, OUTLINED IN MARKER ON LESIA. SOME BRUISING NOTED OUTSIDE THE MARKING. PROVIDER AWARE. SITE IS SOFT, NO OOZING NOTED. PT ALSO COMPLAINING OF PAIN IN HER LEFT LEG WHEN TOUCHED. PT ALSO COMPLAINING OF HEADACHE, MEDICATED PER EMAR WITH GOOD EFFECT. HR 80'S SINUS, MAP >65, PT DENIES CP/PRESSURE. PT ON 1LPM VIA NC, OXYGEN SATURATION >92%. ABDOMEN SOFT, BOWEL TONES ACTIVE THROUGHOUT. PUREWICK IN PLACE TO SUCTION. PIV IN PLACE TO RAC AND RFA. HEPARIN INFUSING AT 10UNITS/KG/HR PER PHARAMCY. BED IN LOWEST POSITON, CALL LIGHT WITHIN REACH, CARE CONTINUES.
[2024-08-06 20:25] LABS: Hematocrit 22.7 % (33.0-51.0); Hemoglobin 7.4 g/dL (11.5-16.0); Mean Corpuscular HGB 30.3 pg (26.0-34.0); Mean Corpuscular HGB Conc 32.6 g/dL (31.5-36.5); Mean Corpuscular Volume 93 fL (80-100); Mean Platelet Volume 10.4 fL (9.1-12.4); Platelet Count 206 K/mm3 (150-400); RDW Standard Deviation 69.8 fL (35.1-46.3); Red Blood Cell Count 2.44 M/mm3 (3.80-5.20); White Blood Cell Count 7.55 K/mm3 (4.00-11.30)
[2024-08-06] MEDS ORDERED: Mirtazapine 15 MG Tab PO SCH (21:00)
[2024-08-07] VITALS: BP 103/54
[2024-08-07 02:15] LABS: BASOPHILS ABSOLUTE AUTO 0.05 K/mm3 (0.00-0.23); BASOPHILS PERCENT AUTO 1 % (0-2); EOSINOPHILS ABSOLUTE AUTO 0.17 K/mm3 (0.00-0.68); EOSINOPHILS PERCENT AUTO 2 % (0-6); Hematocrit 22.9 % (33.0-51.0); Hemoglobin 7.4 g/dL (11.5-16.0); IMMATURE GRAN ABSOLUTE AUTO 0.07 K/mm3 (0.00-0.10); IMMATURE GRAN PERCENT AUTO 1 % (0-1); LYMPHOCYTES ABSOLUTE AUTO 1.66 K/mm3 (0.84-5.20); LYMPHOCYTES PERCENT AUTO 21 % (21-46); MONOCYTES ABSOLUTE AUTO 0.59 K/mm3 (0.16-1.47); MONOCYTES PERCENT AUTO 8 % (4-13); Mean Corpuscular HGB 30.1 pg (26.0-34.0); Mean Corpuscular HGB Conc 32.3 g/dL (31.5-36.5); Mean Corpuscular Volume 93 fL (80-100); Mean Platelet Volume 10.6 fL (9.1-12.4); NEUTROPHILS ABSOLUTE AUTO 5.21 K/mm3 (1.96-9.15); NEUTROPHILS PERCENT AUTO 67 % (41-73); Platelet Count 196 K/mm3 (150-400); RDW Coefficient Variation 20.9 % (11.7-14.2); RDW Standard Deviation 69.7 fL (35.1-46.3); Red Blood Cell Count 2.46 M/mm3 (3.80-5.20); White Blood Cell Count 7.75 K/mm3 (4.00-11.30)
[2024-08-07] MEDS ORDERED: Dose Adjust by Pharmacy XX STA ×3 (02:31→16:26)
[2024-08-07 02:33] LABS: Albumin, Blood 2.2 g/dL (3.4-5.0); Albumin/Globulin Ratio 0.7 (0.8-1.8); Bilirubin, Total 0.2 mg/dL (0.1-1.0); Bun/Creatinine Ratio 25.2 (12.0-20.0); Calcium, Blood 8.4 mg/dL (8.5-10.1); Creatinine, Blood 1.11 mg/dL (0.40-1.00); Globulin, Blood 3.1 g/dL (2.2-4.0); Potassium, Blood 3.8 mmol/L (3.5-5.5); Total Protein, Blood 5.3 g/dL (6.4-8.2)
[2024-08-07 04:00] VITALS: BP 114/55
[2024-08-07] MEDS ORDERED: Potassium Chloride 20 MEQ TabCR PO ONE (05:05)
--- NOTE | 2024-08-07 06:27 | NUR ---
SHIFT SUMMARY NO ACUTE CHANGES THIS SHIFT. PT CONTINUES TO REST IN BED, SLEEPING BUT AROUSABLE. PT ANSWERS QUESTIONS APPROPRAITELY, FOLLOWS DIRECTION WHEN PROMPTED AND IS ABLE TO MAKE HER NEEDS KNOWN. HR 80'S SINUS, MAP >65, PT DENIES CP/PRESSURE. PT ON 1LPM VIA NC, OXYGEN SATURATION >92%. ABDOMEN SOFT, BOWEL TONES ACTIVE THROUGHOUT, PT DENIES N/V. PUREWICK IN PLACE TO SUCTION. PIV IN PLACE TO RAC AND RFA. HEPARIN INFUSING AT 9UNITS/KG/HR. RIGHT GROIN SITE, STABLE, MINIMAL OOZING NOTED TO DRESSING, CLOSURE DEVICE REMAINS IN PLACE. SITE SOFT, BRUISING REMAINS UNCHANGED. PT STATES PAIN IS IMPROVED. BED IN LOWEST POSITION, CALL LIGHT WITHIN REACH, CARE CONTINUES.
[2024-08-07 07:00] VITALS: BP 114/53
--- NOTE | 2024-08-07 07:47 | NUR ---
ASSUMED CARE OF PATIENT AT APPROXIMATELY 0700. REPORT RECEIVED FROM JESSICA CLARK. PT SITTING UP IN BED, INTERACTING WITH STAFF APPROPRIATELY DURING BEDSIDE REPORT. CONTINOUS CARDIAC MONITORINGIN PLACE SHOWING SR, BP STABLE WITH MAP > 65. ON 1LPM O2 WITH O2 SATURATIONS > 92%. R GROIN SITE VISUALIZED, CLOSURE DEVICE IN PLACE WITH MINIMAL OOZING VISUALIZED. BRUISING REMAINS WITHIN OUTLINE THAT WAS MADE DURING NOC SHIFT. LLE EDEMA VISUALIZED. PT NPO. NO ACUTE NEEDS IDENTIFIED AT THIS TIME. SEE SHIFT ASSESSMENT FOR FURTHER DETAILS.
[2024-08-07 09:05] LABS: Hemoglobin 7.5 g/dL (11.5-16.0)
[2024-08-07] MEDS ORDERED: Ondansetron HCl 2 MG / ML 2ML Vial IV PRN (10:25)
[2024-08-07 12:00] VITALS: BP 122/57
[2024-08-07 16:00] VITALS: BP 140/71
--- NOTE | 2024-08-07 17:28 | NUR ---
SHIFT SUMMARY PT REMAINED ALERT AND ORIENTED X 4 T/O ENTIRETY OF SHIFT. ABLE TO FOLLOW COMMANDS, MAKE PURPOSEFUL MOVEMETNS, AND MAKE NEEDS KNOWN. AFEBRILE. REPORTED PAIN IN LLE WITH PALPATION, AND PAIN IN R GROIN ACCESS SITE. AFEBRILE. CONTINOUS CARDIAC MONITORING IN PLACE SHOWS SR WITH HR IN 80'S. BP STABLE WITH MAP > 65. ON 1LPM O2 VIA NC WITH O2 SATURATIONS > 92%. NO BM THIS SHIFT. REPORTED ONE EPISODE OF NAUSEA THIS AM. ORDER FOR MARCO OBTAINED. MEDICATED WITH GOOD BENEFIT. NPO FOR IVC FILTER PLACEMENT. PUREWICK IN PLACE DRAINING DARK YELLOW URINE TO GRAVITY. HEPARIN INFUSING AT 9 U/KG/HR. AWAITING TRANSFER TO INSERT OPERATOR FOR PROCEDURE. WILL CONTINUE TO MONITOR AND REPORT TO ONCOMING RN.
[2024-08-07] MEDS ORDERED: Heparin Sodium 1000 Units/ML 10ML MDV ONE (19:07)
[2024-08-07] MEDS ORDERED: NS 1,000 ML IV ONE (19:08)
[2024-08-07] MEDS ORDERED: Midazolam HCl 1MG / ML 2ML Vial ONE (19:08)
[2024-08-07] MEDS ORDERED: FentaNYL Citrate 50 MCG/ML 2 ML Injection ONE (19:10)
--- NOTE | 2024-08-07 19:18 | NUR ---
ARRIVAL TO UNIT AND OFF UNIT FOR IVC FILTER PLACEMENT: PATIENT ARRIVED TO UNIT AT 1850. PATIENT ALERT AND ORIENTED X4. PATIENT HAS A PUREWICK IN PLACE. PATIENT CONTINUES TO BE STABLE ON 1L VIA NC. SPO2 >94%. HEPARIN GTT AT 9 UNITS/KG/HR. HR IN THE 80S. PATIENT DENIES PAIN OR DISCOMFORT. HEART CENTER AT BEDSIDE AT 1915 TO TAKE THE PATIENT TO THE AUTOMOBILE DETAILER.
[2024-08-07 20:00] VITALS: BP 137/87
--- NOTE | 2024-08-07 21:20 | NUR ---
THIS RN ASSUMED CARE OF PT AT 1900. PT WAS TAKEN TO [facility] [place] [facility] FOR IVC FILTER PLACEMENT AT 191, AND PT RETURNED TO PCU 4 AT 1999. PT IS ALERT AND ORIENTED X4, FOLLOWS COMMANDS AND IS VERY PLEASANT, PT TOLERATED PROCEDURE VERY WELL. PT SOUNDS CLEAR/DIMINSHED, ON 2L NC SATTING >95%, PT DENIES SHORTNESS OF BREATH. PT HEART RATE IS IN THE 90-100s, BLOOD PRESSURE STABLE AT 137/87, PT DENIES CHEST PRESSURE. PT HAS AN OLD GROIN SITE WITH HEMATOMA, TENDER TO TOUCH, PULSES ARE STILL PALPABLE. LEFT PEDAL PULSE IS DOPPLER STRONG. PT HAS NEW PROCEDURE SITE DRESSING ON RIGHT NECK, CLEAN, DRY AND INTACT. DR. SANTACRUZ WANTED TO D/C HEPARIN. NO OTHER INTERVENTIONS AT THIS TIME. PLAN OF CARE CONTINUED.
[2024-08-08] VITALS (12 sets, daily range): BP systolic 14–148; BP diastolic 56–83
[2024-08-08 04:35] LABS: BASOPHILS ABSOLUTE AUTO 0.04 K/mm3 (0.00-0.23); BASOPHILS PERCENT AUTO 1 % (0-2); EOSINOPHILS ABSOLUTE AUTO 0.13 K/mm3 (0.00-0.68); EOSINOPHILS PERCENT AUTO 2 % (0-6); Hematocrit 22.8 % (33.0-51.0); Hemoglobin 7.2 g/dL (11.5-16.0); IMMATURE GRAN ABSOLUTE AUTO 0.04 K/mm3 (0.00-0.10); IMMATURE GRAN PERCENT AUTO 1 % (0-1); LYMPHOCYTES ABSOLUTE AUTO 1.28 K/mm3 (0.84-5.20); LYMPHOCYTES PERCENT AUTO 17 % (21-46); MONOCYTES PERCENT AUTO 8 % (4-13); Mean Corpuscular HGB 29.6 pg (26.0-34.0); Mean Corpuscular HGB Conc 31.6 g/dL (31.5-36.5); Mean Corpuscular Volume 94 fL (80-100); Mean Platelet Volume 10.5 fL (9.1-12.4); NEUTROPHILS ABSOLUTE AUTO 5.42 K/mm3 (1.96-9.15); NEUTROPHILS PERCENT AUTO 72 % (41-73); Platelet Count 204 K/mm3 (150-400); RDW Coefficient Variation 20.5 % (11.7-14.2); RDW Standard Deviation 69.1 fL (35.1-46.3); Red Blood Cell Count 2.43 M/mm3 (3.80-5.20); White Blood Cell Count 7.51 K/mm3 (4.00-11.30)
--- NOTE | 2024-08-08 04:36 | NUR ---
PT IS PEACEFULLY SLEEPING IN BED, PT DID TAKE OUT IVs ON ARM, THIS RN PLACED NEW 20G, PT WAS A LITTLE CONFUSED BUT VERY REDIRECTABLE. NO OTHER NEW EVENTS TO REPORT OVERNIGHT. PLAN OF CARE CONTINUED.
[2024-08-08 04:57] LABS: Bun/Creatinine Ratio 22.3 (12.0-20.0); Calcium, Blood 8.5 mg/dL (8.5-10.1); Creatinine, Blood 1.03 mg/dL (0.40-1.00); Potassium, Blood 4.3 mmol/L (3.5-5.5)
[2024-08-08] MEDS ORDERED: Rivaroxaban 10 MG Tab PO SCH (10:00)
[2024-08-08] MEDS ORDERED: NS 250 ML IV PRN (12:15)
--- NOTE | 2024-08-08 17:09 | NUR ---
PT HAS RECIEVED 1 UNIT PRBC THIS AFTERNOON. SHE IS ALERT, SHE IS ORIENTED X2-3. THIS AM SHE WAS QUITE CONFUSED AND TALKING TO SELF, AFTER ABOUT 1000 PT BECAME MORE CLEAR AND WAS MORE ORIENTED. VSS. LINDSEY. IVC AND THROMBECTOMY ACCESS SITES ARE DRESSED, DRESSING CLEAN AND DRY, SLIGHT BRUISING NOTED AROUND SITE THAT HAS NOT EVOLVED THIS SHIFT, REMAINS TENDER TO TOUCH. PT HAS WORKED WITH PHYSICAL AND OCCUPATIONAL THERAPY TODAY. SHE IS ABLE TO MAKE NEEDS KNOWN. SHE IS CALM AND COOPERATIVE WITH CARE.
[2024-08-09 04:08] LABS: BASOPHILS ABSOLUTE AUTO 0.04 K/mm3 (0.00-0.23); BASOPHILS PERCENT AUTO 1 % (0-2); EOSINOPHILS ABSOLUTE AUTO 0.15 K/mm3 (0.00-0.68); EOSINOPHILS PERCENT AUTO 2 % (0-6); Hematocrit 28.5 % (33.0-51.0); Hemoglobin 9.6 g/dL (11.5-16.0); IMMATURE GRAN ABSOLUTE AUTO 0.07 K/mm3 (0.00-0.10); IMMATURE GRAN PERCENT AUTO 1 % (0-1); LYMPHOCYTES ABSOLUTE AUTO 1.24 K/mm3 (0.84-5.20); LYMPHOCYTES PERCENT AUTO 18 % (21-46); MONOCYTES ABSOLUTE AUTO 0.57 K/mm3 (0.16-1.47); MONOCYTES PERCENT AUTO 8 % (4-13); Mean Corpuscular HGB 30.6 pg (26.0-34.0); Mean Corpuscular HGB Conc 33.7 g/dL (31.5-36.5); Mean Corpuscular Volume 91 fL (80-100); Mean Platelet Volume 9.8 fL (9.1-12.4); NEUTROPHILS ABSOLUTE AUTO 4.92 K/mm3 (1.96-9.15); NEUTROPHILS PERCENT AUTO 70 % (41-73); Platelet Count 186 K/mm3 (150-400); RDW Coefficient Variation 19.8 % (11.7-14.2); RDW Standard Deviation 64.2 fL (35.1-46.3); Red Blood Cell Count 3.14 M/mm3 (3.80-5.20); White Blood Cell Count 6.99 K/mm3 (4.00-11.30)
[2024-08-09 04:43] VITALS: BP 152/76
--- NOTE | 2024-08-09 06:11 | NUR ---
SHIFT SUMMARY PT HAS BEEN SLEEPING MOST OF THE NIGHT.NO CHANGES IN ASSESSMENT NOTED FROM INITIAL ASSESSMENT.PT DENIES PAIN,DENIES NEEDS THIS MORNING.WILL CONTINUE TO MONITOR.
[2024-08-09 06:58] LABS: Bun/Creatinine Ratio 22.8 (12.0-20.0); Creatinine, Blood 1.23 mg/dL (0.40-1.00); Potassium, Blood 4.3 mmol/L (3.5-5.5)
[2024-08-09 09:15] LABS: IMMATURE RETIC FRACTION 28.2 % (2.3-16.0); RETIC HGB EQUIVALENT 30.8 pg (28.20-36.60); RETICULOCYTE ABSOLUTE 0.0692 M/mm3 (0.0200-0.1100); RETICULOCYTE COUNT PERCENT 2.04 % (0.50-2.50)
[2024-08-09 09:45] LABS: Percent Saturation 20.6 % (15.0-50.0)
[2024-08-09 10:03] VITALS: BP 141/67
[2024-08-09 12:48] LABS: BASOPHILS ABSOLUTE AUTO 0.05 K/mm3 (0.00-0.23); BASOPHILS PERCENT AUTO 1 % (0-2); EOSINOPHILS ABSOLUTE AUTO 0.14 K/mm3 (0.00-0.68); EOSINOPHILS PERCENT AUTO 2 % (0-6); Hematocrit 31.5 % (33.0-51.0); Hemoglobin 10.5 g/dL (11.5-16.0); IMMATURE GRAN ABSOLUTE AUTO 0.06 K/mm3 (0.00-0.10); IMMATURE GRAN PERCENT AUTO 1 % (0-1); LYMPHOCYTES ABSOLUTE AUTO 1.07 K/mm3 (0.84-5.20); LYMPHOCYTES PERCENT AUTO 14 % (21-46); MONOCYTES ABSOLUTE AUTO 0.52 K/mm3 (0.16-1.47); MONOCYTES PERCENT AUTO 7 % (4-13); Mean Corpuscular HGB 30.1 pg (26.0-34.0); Mean Corpuscular HGB Conc 33.3 g/dL (31.5-36.5); Mean Corpuscular Volume 90 fL (80-100); Mean Platelet Volume 10.8 fL (9.1-12.4); NEUTROPHILS ABSOLUTE AUTO 5.99 K/mm3 (1.96-9.15); NEUTROPHILS PERCENT AUTO 77 % (41-73); Platelet Count 241 K/mm3 (150-400); RDW Coefficient Variation 19.8 % (11.7-14.2); RDW Standard Deviation 64.3 fL (35.1-46.3); Red Blood Cell Count 3.49 M/mm3 (3.80-5.20); White Blood Cell Count 7.83 K/mm3 (4.00-11.30)
[2024-08-09 12:52] VITALS: BP 138/73
[2024-08-09 17:33] VITALS: BP 150/93
--- NOTE | 2024-08-09 18:00 | NUR ---
UPDATE: CALL WAS MADE TO PROVIDER REGARDING PTS HR NOT RESPONDING TO DILT OR METOPROLOL. PROVIDER WILL GET BACK TO THIS RN WITH FURTHER INSTRUCTIONS.
[2024-08-09] MEDS ORDERED: DONEPEZIL HCL10 MG PO (18:11)
[2024-08-09] MEDS ORDERED: LOSA25 PO (18:13)
--- NOTE | 2024-08-09 19:24 | NUR ---
SHIFT SUMMERY: NEURO: PT A&OX4. FOLLOWS COMMANDS AND MAKES NEEDS KNOWN TO STAFF. NO ACUTE NEURO SYMPTOMS. CARDIAC: AM XARELTO HELD THIS AM DUE TO CONCERN FOR BLEEDING PER PROVIDERS ORDERS. PTS HR WENT FROM THE 90'S TO THE 100'S THIS EVENING. PROVIDER NOTIFIED AND PT WAS GIVEN EVENING DOSE OF XARELTO EARLY PER PROVIDER ORDERS. PT DENIES ANY CP, PRESSURE, TIGHTNESS OR SOB. VSS. RESP: PT ON 1L NC WHILE SLEEPING DUE TO DESAT AND OCCASIONALLY THROUGHOUT DAY DUE TO DESAT. DENIES ANY SOB. NO SIGNIFICANT EVENTS HAPPENED DURING THIS SHIFT. REPORT TO RV BODY MECHANIC RN TO ASSUME CARE OF PT.
--- NOTE | 2024-08-09 19:35 | NUR ---
ASSUMPTION OF CARE Assummed care of pt at 1900,bedside report completd with outgoing nurse.Right groin site assessed,bruising remains within the doted outlined area.Area soft but tender with palpation.Plan of care discussed with pt,pt verbalizes understanding.Pt denies pain,denies needs at this time,will continue to monitor.
[2024-08-09 20:18] VITALS: BP 129/81
[2024-08-09 22:21] LABS: Hematocrit 28.8 % (33.0-51.0); Hemoglobin 9.6 g/dL (11.5-16.0)
[2024-08-10 04:10] VITALS: BP 131/69
[2024-08-10 04:39] LABS: BASOPHILS ABSOLUTE AUTO 0.04 K/mm3 (0.00-0.23); BASOPHILS PERCENT AUTO 1 % (0-2); EOSINOPHILS ABSOLUTE AUTO 0.14 K/mm3 (0.00-0.68); EOSINOPHILS PERCENT AUTO 2 % (0-6); Hematocrit 29.1 % (33.0-51.0); Hemoglobin 9.7 g/dL (11.5-16.0); IMMATURE GRAN ABSOLUTE AUTO 0.08 K/mm3 (0.00-0.10); IMMATURE GRAN PERCENT AUTO 1 % (0-1); LYMPHOCYTES ABSOLUTE AUTO 1.41 K/mm3 (0.84-5.20); LYMPHOCYTES PERCENT AUTO 18 % (21-46); MONOCYTES ABSOLUTE AUTO 0.62 K/mm3 (0.16-1.47); MONOCYTES PERCENT AUTO 8 % (4-13); Mean Corpuscular HGB 30.3 pg (26.0-34.0); Mean Corpuscular HGB Conc 33.3 g/dL (31.5-36.5); Mean Corpuscular Volume 91 fL (80-100); Mean Platelet Volume 10.9 fL (9.1-12.4); NEUTROPHILS PERCENT AUTO 71 % (41-73); Platelet Count 241 K/mm3 (150-400); RDW Coefficient Variation 19.2 % (11.7-14.2); RDW Standard Deviation 62.3 fL (35.1-46.3); White Blood Cell Count 7.89 K/mm3 (4.00-11.30)
[2024-08-10 04:49] LABS: Bun/Creatinine Ratio 32.1 (12.0-20.0); Creatinine, Blood 1.12 mg/dL (0.40-1.00)
--- NOTE | 2024-08-10 06:17 | NUR ---
SHIFT SUMMARY PT SLEPT MOST OF THE NIGHT.RIGHT NECK DRESSING CDI.RIGHT GROIN SITE REMAINS BRUISED,NO BRUISING NOT BEYOND THE OUTLINED AREA NOTED.PT DENIES PAIN,DENIES NEEDS AT THIS TIME,WILL CONTINUE TO MONITOR.
[2024-08-10 07:25] VITALS: BP 138/78
[2024-08-10 12:11] VITALS: BP 153/66
--- NOTE | 2024-08-10 13:42 | NUR ---
Spiritual Care Visit. Pt. is awake in bed and welcomes my visit. Pt. is pleasant. Facilitated a life review. While Pt. does identify as a woman of avel, pt. verbalized that she has not been in adventist for years after he son unexpectantly passed. Listen with empathy and a calming caring presence. Pt. displays evidence of trust and engagement. Prayed with Pt. Pt. verbalized gratitude for the spiritual care visit.
--- NOTE | 2024-08-10 15:23 | NUR ---
DISCHARGE SUMMARY PT A&O X4, CALM, COOPERATIVE TO CARE. HR IN THE 80'S, SINUS RHYTHM, DENIES CP/PRESSURE, NUMB/TINGLING, SBP STABLE. O2 >92% ON RA, DENIES SOB, 1L VIA NC WHILE SLEEPING. PT POST EMBOLECTOMY. ACESSED THROUGH THE RIGHT GROIN, SITE WITH TEGADERM IN PLACE, BRUISING NOTED. BRUISE OUTLINED WITH MARKER TO TRACK, MD AWARE. RIGHT NECK ACESS SITE FOR IVC FILTER. DRESSED WITH TEGADERM, BRUISING NOTED. PT WITH MINIMAL BILAT LE EDEMA AND MINIMAL BUE EDEMA. PUREWICK IN PLACE WITH BREIF. D/C ORDERS PLACED. PT TO D/C TO SNF. CARE CORDINATOR IN ROOM DISCUSSING D/C PLANS. PT DENIES ANY QUESTIONS OR CONCERNS AT THIS TIME. PT CHANGED INTO HER CLOTHES. PT LEFT VIA WHEELCHAIR WITH [facility] TO SNF.
[2024-08-11 18:26] LABS: HAPTOGLOBIN 248 mg/dL (30-200)
== END 2024-08-10 14:44 | disposition home or self-care (01) | DRG 163 ==
LOC: ER 17:12 → ICUE 21:18 → PCU 08-07 18:20
PROVIDERS: Family Medicine; Student in an Organized Health Care Education/Training Program; ADMIT Internal Medicine
PROC: 02CQ3ZZ Extirpation of Matter from Right Pulmonary Artery, Percutaneous Approach (ICD-10-PCS; 2024-08-05)
PROC: 02CR3ZZ Extirpation of Matter from Left Pulmonary Artery, Percutaneous Approach (ICD-10-PCS; 2024-08-05)
PROC: 06H03DZ Insertion of Intraluminal Device into Inferior Vena Cava, Percutaneous Approach (ICD-10-PCS; 2024-08-07)
PROC: 30233N1 Transfusion of Nonautologous Red Blood Cells into Peripheral Vein, Percutaneous Approach (ICD-10-PCS; principal; 2024-08-08)
DX: I26.99 Other pulmonary embolism without acute cor pulmonale (principal); I21.A1 Myocardial infarction type 2; J96.01 Acute respiratory failure with hypoxia; I50.32 Chronic diastolic (congestive) heart failure; I31.39 Other pericardial effusion (noninflammatory); I47.19 Other supraventricular tachycardia; D62 Acute posthemorrhagic anemia; I82.432 Acute embolism and thrombosis of left popliteal vein; I82.442 Acute embolism and thrombosis of left tibial vein; I82.452 Acute embolism and thrombosis of left peroneal vein; R29.6 Repeated falls; E03.9 Hypothyroidism, unspecified; F03.90 Unspecified dementia, unspecified severity, without behavioral disturbance, psychotic disturbance, mood disturbance, and anxiety; Z99.81 Dependence on supplemental oxygen; I44.1 Atrioventricular block, second degree; E88.09 Other disorders of plasma-protein metabolism, not elsewhere classified; I27.20 Pulmonary hypertension, unspecified; I07.1 Rheumatic tricuspid insufficiency; I11.0 Hypertensive heart disease with heart failure; M19.90 Unspecified osteoarthritis, unspecified site; K21.9 Gastro-esophageal reflux disease without esophagitis; M54.9 Dorsalgia, unspecified; G89.29 Other chronic pain; E78.5 Hyperlipidemia, unspecified; Z86.79 Personal history of other diseases of the circulatory system; I48.0 Paroxysmal atrial fibrillation; Z88.5 Allergy status to narcotic agent; Z79.890 Hormone replacement therapy; Z79.899 Other long term (current) drug therapy
CPT/HCPCS: 36415; 36430; 71046; 71260; 76377; 76937; 80048; 80053; 82607; 82728; 82746; 83010; 83540; 83550; 83615; 83735; 83880; 84443; 84484; 85014; 85018; 85025; 85027; 85045; 85347; 85520; 85610; 85730; 86850; 86900; 86901; 86923; 93005; 93010; 93306; 93970; 94760; 94762; 96360-59; 97110; 97162; 97165; 97530; 97535; 99152; 99153; 99285-25; A9270; C1757; C1769; C1880; C1887; J1644; J2250; J2405; J3010; J7030; J7040; J7050; P9016; Q9967

== ENCOUNTER 2025-02-24 10:02 | Emergency (ER) | payer MEDICARE, OTHER ==
[~2025-02-24] VITALS: Ht 154.9 cm; Wt 52.2 kg
[~2025-02-24 10:02] MED LIST changes: +DONEPEZIL HCL10 MG PO; +LOSA25 PO
[2025-02-24] MEDS ORDERED: Ondansetron HCl 2 MG / ML 2ML Vial IV ONE (10:45)
[2025-02-24] MEDS ORDERED: Ondansetron 4 MG SoluTab SL ONE (11:15)
[2025-02-24] MEDS ORDERED: OXAYDO5 M1 PO (11:24)
[2025-02-24 12:38] LABS: BASOPHILS ABSOLUTE AUTO 0.05 K/mm3 (0.00-0.23); BASOPHILS PERCENT AUTO 1 % (0-2); EOSINOPHILS ABSOLUTE AUTO 0.10 K/mm3 (0.00-0.68); EOSINOPHILS PERCENT AUTO 1 % (0-6); Hematocrit 32.5 % (33.0-51.0); Hemoglobin 10.1 g/dL (11.5-16.0); IMMATURE GRAN ABSOLUTE AUTO 0.06 K/mm3 (0.00-0.10); IMMATURE GRAN PERCENT AUTO 1 % (0-1); LYMPHOCYTES ABSOLUTE AUTO 1.71 K/mm3 (0.84-5.20); LYMPHOCYTES PERCENT AUTO 19 % (21-46); MONOCYTES ABSOLUTE AUTO 0.71 K/mm3 (0.16-1.47); MONOCYTES PERCENT AUTO 8 % (4-13); Mean Corpuscular HGB Conc 31.1 g/dL (31.5-36.5); Mean Corpuscular Volume 92 fL (80-100); NEUTROPHILS ABSOLUTE AUTO 6.19 K/mm3 (1.96-9.15); NEUTROPHILS PERCENT AUTO 70 % (41-73); NRBC ABSOLUTE 0.00 K/mm3 (0.00-0.02); NRBC Auto 0.0 /100 WBC (0.0-0.2); Platelet Count 366 K/mm3 (150-400); RDW Coefficient Variation 23.2 % (11.7-14.2); RDW Standard Deviation 75.8 fL (35.1-46.3)
[2025-02-24 12:56] LABS: Alanine Aminotransfer (ALT/SGP 41.0 U/L (12-78); Albumin, Blood 2.9 g/dL (3.4-5.0); Albumin/Globulin Ratio 0.6 (0.8-1.8); Anion Gap 8.0 mmol/L (3-11); Aspartate Aminotrans (AST/SGOT 35.0 U/L (12-37); Bilirubin, Total 0.4 mg/dL (0.1-1.0); Blood Urea Nitrogen 26.0 mg/dL (8-24); CO2, Blood 26.0 mmol/L (21-32); Calcium, Blood 9.0 mg/dL (8.5-10.1); Chloride, Blood 106.0 mmol/L (98-108); Creatinine, Blood 1.08 mg/dL (0.40-1.00); Globulin, Blood 4.6 g/dL (2.2-4.0); Glucose, Blood 128.0 mg/dL (70-99); Potassium, Blood 3.8 mmol/L (3.5-5.5); Sodium, Blood 136.0 mmol/L (136-145); Total Protein, Blood 7.5 g/dL (6.4-8.2)
[2025-02-24 15:15] VITALS: BP 133/63
== END 2025-02-24 16:01 | disposition home or self-care (01) ==
LOC: ER 10:02
PROVIDERS: Student in an Organized Health Care Education/Training Program
DX: S80.12XA Contusion of left lower leg, initial encounter (principal); R55 Syncope and collapse; W06.XXXA Fall from bed, initial encounter; Z79.899 Other long term (current) drug therapy; Z88.5 Allergy status to narcotic agent
CPT/HCPCS: 71260; 73590; 80053; 82947; 84484; 85025; 93005; 93010; 99284-25; A9270; J2405; Q9967